=== PATIENT | female | born 1975 | race Asian ===

== ENCOUNTER 2017-05-17 18:07 | Emergency (ER) | payer BC ==
[~2017-05-17] VITALS: Ht 170.2 cm; Wt 63.5 kg
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
[2017-05-17] MEDS ORDERED: IBUPROFEN600 MG ORAL (18:58)
[2017-05-17] MEDS ORDERED: CYCLOBENZAPRINE10 MG ORAL (18:58)
[2017-05-17 19:28] VITALS: BP 122/80
[2017-05-17 19:29] VITALS: BP 122/80
== END 2017-05-17 19:29 | disposition home or self-care (01) ==
LOC: EMR 19:01
DX: T14.8 Other injury of unspecified body region (principal); V43.52XA Car driver injured in collision with other type car in traffic accident, initial encounter; Y93.9 Activity, unspecified; Y92.410 Unspecified street and highway as the place of occurrence of the external cause; M54.2 Cervicalgia; Z90.13 Acquired absence of bilateral breasts and nipples
CPT/HCPCS: 99283